=== PATIENT | female | born 1950 | race Caucasian/White ===

== ENCOUNTER 2020-01-25 06:40 | Inpatient (IN) | payer MEDICARE, MEDICAID ==
[2020-01-25] MEDS ORDERED: Bupivacaine 0.5% 50 ML MDV ONE (06:59)
[2020-01-25] MEDS ORDERED: Meropenem 500 MG SDV ONE (06:59)
[2020-01-25] MEDS ORDERED: Lidocaine 1% with EPINEPHrine 1:100,000 50 ML MDV ONE (06:59)
[2020-01-25] MEDS ORDERED: fentaNYL 250 MCG/5 ML SDV ONE (07:02)
[2020-01-25] MEDS ORDERED: Dexamethasone 4 MG/ML SDV ONE (07:03)
[2020-01-25] MEDS ORDERED: Glycopyrrolate 0.2 MG/ML 5 ML MDV ONE (07:03)
[2020-01-25] MEDS ORDERED: Ondansetron 4 MG/2 ML SDV ONE (07:03)
[2020-01-25] MEDS ORDERED: Rocuronium 50 MG/5 ML Vial ONE (07:03)
[2020-01-25] MEDS ORDERED: Succinylcholine 200 MG/10 ML MDV ONE (07:03)
[2020-01-25] MEDS ORDERED: Neostigmine Methylsulfate 1 MG/ML 5 ML Syringe ONE (07:03)
[2020-01-25] MEDS ORDERED: Propofol 200 MG/20 ML SDV ONE (07:03)
[2020-01-25] MEDS ORDERED: HYDROmorphone/Normal Saline 15 MG/30 ML PCA IV PRN (07:23)
[2020-01-25] MEDS ORDERED: Naloxone 0.4 MG/ML SDV IVPUSH PRN (07:23)
[2020-01-25] MEDS ORDERED: Acetaminophen 500 MG Tab PO ONE (07:30)
[2020-01-25] MEDS ORDERED: Scopolamine 1.5 MG Transdermal Patch TRDERM SCH (07:30)
[2020-01-25] MEDS ORDERED: Dextrose 5%-Lactated Ringers 1,000 ML IV SCH (07:45)
[2020-01-25] MEDS ORDERED: cefOXitin 2 GM in Sodium Chloride 0.9% 50 ML IV ONE (09:00)
[2020-01-25] MEDS ORDERED: Ketamine 500 MG/5 ML MDV IV SCH (09:30)
[2020-01-25] MEDS ORDERED: Magnesium Sulfate 1.8 GM in Sodium Chloride 0.9% 100 ML IV SCH (09:30)
[2020-01-25] MEDS ORDERED: Ropivacaine 30 ML, dexAMETHasone 8 MG, EPINEPHrine 0.4 MG, Sodium Chloride 0.9% 47.6 ML NERVRT SCH ×4 (09:30)
[2020-01-25] MEDS ORDERED: Ketamine 50 MG in Sodium Chloride 0.9% 49.5 ML IV SCH (09:30)
[2020-01-25] MEDS ORDERED: Magnesium Sulfate 2.9 GM in Sodium Chloride 0.9% 250 ML IV ONE (09:30)
[2020-01-25] MEDS ORDERED: Lactated Ringers 1,000 ML ONE (10:53)
[2020-01-25] MEDS ORDERED: Cyclobenzaprine 10 MG Tab PO PRN (12:51)
[2020-01-25] MEDS ORDERED: hydrOXYzine HCL 100 MG/2 ML SDV IM PRN (13:00)
[2020-01-25] MEDS ORDERED: diphenhydrAMINE 50 MG/ML SDV IVPUSH PRN (13:00)
[2020-01-25] MEDS ORDERED: Labetalol 20 MG/4 ML Syringe IVPUSH PRN (13:00)
[2020-01-25] MEDS ORDERED: Ondansetron 4 MG/2 ML SDV IVPUSH PRN (13:00)
[2020-01-25] MEDS ORDERED: Calcium Gluconate 10% 1 GM/10 ML SDV IVPUSH PRN (13:00)
[2020-01-25] MEDS ORDERED: Metoclopramide 10 MG/2 ML SDV IVPUSH PRN (13:00)
[2020-01-25] MEDS: Acetaminophen 500 MG Tab PO SCH ×2 (14:47→21:41)
[2020-01-25] MEDS: Pantoprazole 40 MG Vial IVPUSH SCH (14:47)
[2020-01-25] MEDS ORDERED: MVI, Adult with Vitamin K 10 ML, Thiamine 200 MG, Chromium/Copper/Mang/Selen/Zn 1 ML in... IV SCH ×4 (16:00)
[2020-01-25] MEDS: cefOXitin 2 GM in Sodium Chloride 0.9% 50 ML IV SCH ×2 (16:29→21:42)
[2020-01-25] MEDS: Heparin Sodium 5,000 Units/ML Vial SUBCUT SCH (19:59)
[2020-01-25] MEDS: Dextrose 5%-Lactated Ringers 1,000 ML IV SCH (23:09)
[2020-01-26] MEDS: cefOXitin 2 GM in Sodium Chloride 0.9% 50 ML IV SCH ×2 (03:45→10:04)
[2020-01-26] MEDS ORDERED: Iopamidol 612 MG/ML 50 ML SDV PO STA (04:35)
[2020-01-26] MEDS: Iopamidol 755 Mg/ML 100 ML Bottle IV STA ×2 (05:00→05:54)
[2020-01-26] MEDS: Acetaminophen 500 MG Tab PO SCH ×3 (06:45→21:38)
[2020-01-26] MEDS: Dextrose 5%-Lactated Ringers 1,000 ML IV SCH (06:52)
--- NOTE | 2020-01-26 07:42 | CRLCT ---
INDICATION: Abdominal pain. History of Poly-en-Y gastric bypass. Evaluate mesenteric arteries. Post operative day 1. COMPARISON: None. TECHNIQUE: CT angiography of the abdomen and pelvis with and without contrast. 100 cc of Isovue-[id number]. FINDINGS: Linear bibasilar subsegmental atelectasis. Midline skin renetta and anterior abdominal wound as well as small foci of intraperitoneal free air likely reflecting recent surgery. The liver, gallbladder, spleen, pancreas and adrenal glands are unremarkable. Postsurgical changes of Poly-en-Y gastric bypass. Kidneys enhance symmetrically. No obstructing renal calculus or hydronephrosis. Atherosclerosis of the abdominal aorta which is nonaneurysmal. The celiac, SMA, renal arteries and MARIUM are patent. Common, internal and external iliac arteries are patent. No enlarged lymph nodes identified in the abdomen or pelvis. Mild free pelvic fluid. Uterus is present. Miranda catheter in urinary bladder. Foci of gas within the bladder is likely due to catheter manipulation. Colonic diverticulosis without evidence of acute diverticulitis. No evidence of bowel obstruction or inflammation. Degenerative changes in the spine. IMPRESSION: 1. Aorta, celiac, SMA, renal arteries, MARIUM and iliac vessels are patent. Atherosclerosis of the abdominal aorta. 2. No specific findings to account for patient`s symptoms. 3. Postsurgical changes of Poly-en-Y gastric bypass. 4. Small foci of intraperitoneal free air reflecting recent surgery. Findings discussed with Dr. Blunt at 7:20 AM. Please note that all CT scans at this facility use dose modulation, iterative reconstruction, and/or weight-based dosing when appropriate to reduce radiation dose to as low as reasonably achievable. Dictated by Ranjith Dorantes MD @ Jan 26 2020 7:16AM (Electronically Signed)
[2020-01-26] MEDS: Heparin Sodium 5,000 Units/ML Vial SUBCUT SCH ×2 (08:27→20:20)
[2020-01-26] MEDS ORDERED: Dextrose 5%-Lactated Ringers 1,000 ML IV SCH (09:00)
--- NOTE | 2020-01-26 09:28 | CR ---
UGI Limited HISTORY: Postbariatric surgery FINDINGS: Patient swallowed water-soluble contrast. Upright views of the abdomen show no evidence of extravasation or obstruction. IMPRESSION: Status post bariatric surgery No extravasation or obstruction seen
[2020-01-26] MEDS: Bisacodyl 5 MG Tab PO SCH ×2 (10:05→20:23)
[2020-01-26] MEDS: SCOPOLAMINE PATCH CHECK TOP SCH (10:05)
[2020-01-26] MEDS: Docusate Sodium 100 MG Cap PO SCH ×2 (10:05→20:22)
[2020-01-26] MEDS: Pantoprazole 40 MG Vial IVPUSH SCH (15:13)
[2020-01-26] MEDS ORDERED: MVI, Adult with Vitamin K 10 ML, Thiamine 200 MG, Chromium/Copper/Mang/Selen/Zn 1 ML in... IV SCH ×4 (16:00)
--- NOTE | 2020-01-26 17:22 | PN ---
DATE OF SERVICE: 01/26/2020 The patient is postop day #1 from exploratory laparotomy with reduction of small bowel volvulus and small bowel resection. Underwent an upper GI x-ray, which looks good this morning. The patient will be moved up to a step-2 diet today with IV turned down and will begin some bowel stimulation. The patient underwent a CT angiogram today. Her CT angio about a week ago showed occlusion of the celiac artery and improvement in the overall mesenteric blood flow at this point and result on that is pending. Clinically, the patient had no palpable hepatic artery, but there did not appear to be any ischemic findings within liver or GI tract at the time of exploration. We will advance her to step 2 diet today, maximize activity, and work with pulmonary toilet and begin the bowel stimulation. Evgeny Blunt MD /[id number]
[2020-01-27] MEDS: Bisacodyl 5 MG Tab PO SCH ×2 (08:38→21:14)
[2020-01-27] MEDS: Docusate Sodium 100 MG Cap PO SCH ×2 (08:38→21:14)
[2020-01-27] MEDS: Acetaminophen 500 MG Tab PO SCH ×3 (08:38→21:18)
[2020-01-27] MEDS: Heparin Sodium 5,000 Units/ML Vial SUBCUT SCH ×2 (08:38→21:22)
[2020-01-27] MEDS: SCOPOLAMINE PATCH CHECK TOP SCH (08:39)
[2020-01-27] MEDS ORDERED: Cyanocobalamin (Vitamin B12) 1,000 MCG/ML SDV IM ONE (09:00)
[2020-01-27] MEDS: oxyCODONE 5 MG Tab PO PRN ×2 (13:48→21:17)
[2020-01-27] MEDS: Pantoprazole 40 MG Vial IVPUSH SCH (13:49)
[2020-01-27] MEDS ORDERED: Enoxaparin 40 MG/0.4 ML Syringe SUBCUT SCH (16:00)
[2020-01-27] MEDS ORDERED: Bisacodyl 10 MG Supp RECTAL ONE (20:33)
[2020-01-27] MEDS: Lactulose Soln 10 GM/15 ML 15 ML UD Cup PO SCH (21:14)
[2020-01-28 03:21] VITALS: PULSE 68
[2020-01-28] MEDS: oxyCODONE 5 MG Tab PO PRN ×2 (03:49→10:47)
[2020-01-28] MEDS: Acetaminophen 500 MG Tab PO SCH (05:45)
[2020-01-28 07:32] VITALS: BP 146/72
[2020-01-28] MEDS: Heparin Sodium 5,000 Units/ML Vial SUBCUT SCH (07:36)
[2020-01-28] MEDS: Lactulose Soln 10 GM/15 ML 15 ML UD Cup PO SCH (08:47)
[2020-01-28] MEDS: Docusate Sodium 100 MG Cap PO SCH (08:47)
[2020-01-28] MEDS: Bisacodyl 5 MG Tab PO SCH (08:48)
--- NOTE | 2020-01-28 16:52 | CONS ---
DATE OF SERVICE: 01/27/2020 REFERRING PHYSICIAN: CONSULTING PHYSICIAN: Nacho Preciado MD REASON FOR CONSULTATION: From Dr. Blunt's evaluation, status post reduction of volvulus and small-bowel resection on 01/25/2020. SUMMARY OF HOSPITAL COURSE: A pleasant 69-year-old female who underwent the aforementioned procedure. The patient is doing well. Pain is well controlled. No nausea, vomiting, shortness of breath, or chest pain. Her pain is 1 to 2/10 and controlled with p.o. pain medications. The patient did undergo a limited upper GI on 01/26/2020, which showed no gross abnormalities. PAST MEDICAL HISTORY: Malabsorption, B12 deficiency, history of bariatric surgery, hypertension, dyslipidemia, hypothyroidism, osteoarthritis, trigger finger, and vitiligo. SOCIAL HISTORY: She is not a smoker. FAMILY HISTORY: Noncontributory. REVIEW OF SYSTEMS: GENERAL: The patient is appropriate for condition. HEENT: No abnormalities except for her Synthroid use due to hypothyroidism. CARDIOVASCULAR: No history of myocardial infarction. RESPIRATORY: No history of asthma. GASTROINTESTINAL: As described above. GENITOURINARY: No dysuria. NEUROLOGICAL: No significant abnormalities. PSYCHIATRIC: No abnormalities. The remainder of review of systems is reviewed and is negative. PHYSICAL EXAMINATION: VITAL SIGNS: Temperature 97.9, blood pressure 145/74, pulse 69, respirations 16, and 100% on room air. HEENT: Pupils are equal. NECK: Supple. LUNGS: Clear. ABDOMEN: Incision is healing well. NEUROLOGICAL: Oriented x3. PSYCHIATRIC: No gross depression. EXTREMITIES: Full range of motion. IMAGING: I did review the imaging and the upper GI as described above. ASSESSMENT: Status post reduction of volvulus and small-bowel resection. PLAN: The patient is doing well. Awaiting bowel movement. We will discontinue [employer], switch to oxycodone, pain medication, and add dulcolax along with lactulose for increased GI activity. Nacho Preciado MD /[id number]
--- NOTE | 2020-01-29 10:54 | PN ---
DATE OF SERVICE: 01/28/2020 SUBJECTIVE: The patient is doing very well. Pain is well controlled. No nausea, vomiting, shortness of breath, or chest pain. OBJECTIVE: VITAL SIGNS: Stable. CARDIOVASCULAR: Regular rate. RESPIRATORY: Lungs clear to consultation bilaterally. Incision healing well. ASSESSMENT AND PLAN: Status post small bowel volvulus. The patient will be discharged today. Follow up with Dr. Blunt per written instructions. ACTIVITY: No lifting greater than 30 pounds x30 days. DISCHARGE MEDICATIONS: Please see MAR, but include oxycodone for pain. Nacho Preciado MD /[id number]
--- NOTE | 2020-01-31 16:55 | OR ---
DATE OF PROCEDURE: 01/25/2020 SURGEON: Evgeny Blunt MD PREOPERATIVE DIAGNOSIS: Small bowel volvulus. POSTOPERATIVE DIAGNOSES: 1. Small bowel volvulus with devascularization of the terminal end of the Poly limb. 2. Separate small bowel stricture. 3. Hypermobile cecum. OPERATIVE PROCEDURES: Exploratory laparotomy with lysis of adhesions and: 1. Reduction of small bowel volvulus and closure of internal hernia (12281). 2. Revision of jejunojejunostomy component of Poly-en-Y gastric bypass (47937). 3. Separate small bowel stricturoplasty. 4. Plication of hypermobile cecum to right lateral abdominal wall (cecopexy) (35499). 5. Placement of Interceed mesh to limit recurrent adhesion formation between the pelvic and abdominal wall and underlying viscera (30800). ANESTHESIA: General. INSPECTOR CASING: Niharika Smalls PA-C. INDICATIONS FOR PROCEDURE: The patient presents with postprandial abdominal pain and workup has included a CT scan, which shows a small bowel volvulus, status post Poly-en-Y gastric bypass. 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 Plan at this point will be to proceed with an exploratory laparotomy and correction of the small bowel volvulus. We will secondarily then obtain a followup CT angiogram tomorrow so as to further evaluate the patient for possible mesenteric ischemia issues. The latter appeared to be somewhat chronic and would be amenable to more of an elective approach for scoping to reduce the volvulus, which I think is probably causing most of the patient's symptoms at this time. Potential risks of the procedure including bleeding, infection, problems with bowel obstruction recurring, as well as leaks from the various GI tract closures that might be undertaken, as well as possibility of cardiopulmonary, septic, or hemorrhagic complications leading to were discussed, and the patient wishes to proceed. DETAILS OF PROCEDURE: The patient was taken to the operating room and after general endotracheal anesthesia was induced, a Miranda catheter was inserted, and the abdomen was prepped and draped. A midline incision from the umbilicus upward toward the xiphoid of a handsbreadth length was made and carried down through the full-thickness abdominal wall. Upon entering the peritoneal cavity, some scattered adhesions were taken down. Much of the small bowel had a somewhat mcintosh appearance to it, consistent with venous hypertension, typically seen with these small bowel volvuluses. The point of volvulus could then be seen with a large portion of the small bowel, including the jejunojejunostomy, being rotated from a left to right direction underneath the Poly limb. This was eventually unwound and the volvulus decompressed to the point that all the components of the Poly limb came into a normal position, and at that point, the small bowel had become pink and relieved of any venous hypertension. There was a persistent dusky area at the point where the Poly limb entered the jejunojejunostomy, and we tried to proceed with resection of this with revision of the jejunojejunostomy by that means. The patient was also noted to have an additional area of stricturing where the common limb had come through the area of the volvulus. This remained with a dense fibrous crease, causing a partial narrowing, and this was initially treated with stricturoplasty. The open end of the antimesenteric border at the point of the stricture was opened and a KEMI 60 mm load followed by 30 mm internal firing were then placed and the common opening closed with a transverse firing of the KEMI purple load. The angles of anastomosis were reinforced with 3-0 Vicryl stitch. No mesenteric defect was present in this case. The Poly limb as it entered the jejunojejunostomy was then divided and small segment of this was resected back to a point where there was satisfactory appearing perfusion of the bowel. The jejunojejunostomy was then reconstructed with anastomosis between the end of the Poly limb and the small bowel roughly 20 cm distal to the original jejunojejunostomy. This was with an internal firing of the Endo-KEMI 60 mm stapler and again followed by 30 mm internal firing. The common opening was closed with a purple load. Angles of anastomosis were reinforced with some 3-0 Vicryl stitch and the mesenteric defect in this case closed with a 2-0 silk stitch. One additional finding was an extremely hypermobile cecum, which appeared to be at significant risk for development of cecal volvulus. This was then tacked down to the lateral aspect of the abdominal wall on the right side with a series of [id number] 2-0 silk stitches and then also some fibrin sealant placed across that area to help facilitate some scarring. The abdomen was then irrigated with antibiotic-containing saline solution. Bilateral transversus abdominis plane blocks were then placed. To limit recurrent adhesion formation between the pelvic and the abdominal wall and the underlying viscera, Interceed mesh was placed and the midline fascia was then approximated with #2 Vicryl stitch, the subcutaneous tissue with 2 layers of 3-0 and 4-0 Vicryl stitch, and the skin with renetta. Dressing was applied. The patient was taken to the recovery room in satisfactory condition. Physician veterinarian assistant, Niharika Smalls, played an essential role in assisting in this case, helping to position the patient, retract structures as needed, as well as suturing and cutting sutures when indicated. Her presence improved patient safety and decreased the operative time. Evgeny Blunt MD /[id number]
--- NOTE | 2020-02-01 12:16 | DISCH ---
FINAL DIAGNOSES: 1. Small bowel volvulus with devascularization of terminal end of Poly limb. 2. Separate small bowel stricture. 3. Hypermobile cecum. 4. Previously suspected mesenteric vascular disease now ruled out by subsequent CT angiogram. 5. Bariatric surgery status. 6. History of atopic dermatitis. OPERATIVE PROCEDURE: This was done on 01/25/2020, exploratory laparotomy with lysis of adhesions and: 1. Reduction of small bowel volvulus and closure of internal hernia. 2. Revision of jejunojejunostomy component of Poly-en-Y gastric bypass. 3. Separate small bowel strictureplasty. 4. Cecopexy. 5. Placement of Interceed mesh to limit recurrent adhesion formation between pelvic and abdominal wall and underlying viscera. SUMMARY: This is a 69-year-old, status post Poly-en-Y gastric bypass in 2014, presenting with postprandial crampy abdominal pain. CT scan showed a small bowel volvulus. At that time, this also was reported to have an occluded celiac artery, but otherwise intact superior and inferior mesenteric arteries on that CT scan. The patient was admitted and underwent limited laparotomy with correction of the volvulus. The patient had some stricturing at the point where the Poly limb entered the jejunojejunostomy, and that component of Poly-en-Y gastric bypass was revised. Also had a separate stricture elsewhere in the small bowel. The patient was noted to also have a hypermobile cecum, and this was fixed to the right lateral abdominal wall with some sutures. Postoperatively, the patient had no major problems. She was resuming a step-3 diet at the time of discharge, and will be continuing her usual medications plus oxycodone 5 mg q.6 hours p.r.n. pain #20. Followup will be with Niharika Smalls on 02/05/2020 at [facility].
== END 2020-01-28 11:15 | disposition home or self-care (01) | DRG 326 ==
LOC: JP.SDSSCHI 06:40 → JP.SDS 06:40 → EDSTATUS 10:30 → JP.MS 11:20
PROVIDERS: ADMIT Surgery; ATTEND Surgery
PROC: 0DS80ZZ Reposition Small Intestine, Open Approach (ICD-10-PCS; principal; 2020-01-25)
PROC: 0D160ZA Bypass Stomach to Jejunum, Open Approach (ICD-10-PCS; 2020-01-25)
PROC: 0DQ80ZZ Repair Small Intestine, Open Approach (ICD-10-PCS; 2020-01-25)
PROC: 0DQH0ZZ Repair Cecum, Open Approach (ICD-10-PCS; 2020-01-25)
PROC: 3E0M05Z Introduction of Adhesion Barrier into Peritoneal Cavity, Open Approach (ICD-10-PCS; 2020-01-25)
DX: K95.89 Other complications of other bariatric procedure (principal); K56.2 Volvulus; K56.609 Unspecified intestinal obstruction, unspecified as to partial versus complete obstruction; K91.2 Postsurgical malabsorption, not elsewhere classified; E78.5 Hyperlipidemia, unspecified; I10 Essential (primary) hypertension; E03.9 Hypothyroidism, unspecified; M19.90 Unspecified osteoarthritis, unspecified site; M65.30 Trigger finger, unspecified finger; Y84.8 Other medical procedures as the cause of abnormal reaction of the patient, or of later complication, without mention of misadventure at the time of the procedure; L20.9 Atopic dermatitis, unspecified; Z79.890 Hormone replacement therapy; Z79.899 Other long term (current) drug therapy; Z98.84 Bariatric surgery status; K58.9 Irritable bowel syndrome, unspecified
CPT/HCPCS: 74174; 74240; 74240-26; 88307; 94762; A9270-GY; C9113; J0171; J0330; J0694; J1100; J1170; J1644; J2185; J2405; J2704; J2710; J2795; J3010; J3411; J3420; J3475; J3490; J7050; J7120; J7121; Q9967